=== PATIENT | male | born 1990 | race Caucasian/White ===

== ENCOUNTER 2016-05-29 17:40 | Emergency (ER) | payer OTHER ==
[~2016-05-29] VITALS: Ht 177.8 cm; Wt 77.1 kg
[~2016-05-29 17:40] MED LIST: HYDROXYZINE HCL50 M1 PO; KEFLEX500 M1 PO; NOVOLIN N100 UNIT/1 SC; NOVOLIN R100 UNIT/1 SC; PERCOCET 5-3251 EACH PO; RELION NOVOL100 U/M1 SC; VICODIN 5-3001 EACH PO
[2016-05-29 17:46] VITALS: BP 148/94
--- NOTE | 2016-05-29 18:32 | ED AMS/SEIZURE/WEAK/DIZZY ---
History of Present Illness General Chief Complaint: General Adult Stated Complaint: BIBA FOR LOW BS Source: patient, family, friend Exam Limitations: no limitations Vital Signs & Intake/Output Vital Signs & Intake/Output Vital Signs Date Time Temp Pulse Resp B/P Pulse O2 O2 Flow FiO2 Ox Delivery Rate 05/29 1746 97.5 100 20 148/94 98 Room Air ED Intake and Output 05/30 0000 05/29 1200 Intake Total Output Total Balance Patient 170 lb Weight Allergies Coded Allergies: latex (ITCHY 07/30/15) Reconcile Medications Insulin NPH Human Isophane (Novolin N) 100 UNIT/ML VIAL DM (Reported) Insulin Regular (Novolin R Inj) 1,000 UNITS/10 ML BAILEY 0 UNITS SC TID AC DIABETES (Reported) Triage Note: 25 YO MALE BIBA FROM CAR. PT WAS WITH FRIENDS WHO STATES PT HAS A SEUIZRE. ON EMS ARRIVAL PTS SUGAR WAS 30, HX OF IDDM. PT WAS GIVEN 2 ORAL TUBES OF GLUCOSE AND SUGAR WENT UP TO 71 FOR EMS. PT ARRIVES A&O X3. STATES HAS A SEUZIRE HISTORY. PTS SUGAR 69 ON ARRIVAL TO ER. PT STATES HE TOOK HIS NORMAL DOSE OF INSULIN TODAY AND ATE. Triage Nurses Notes Reviewed? yes HPI: 25 yo M PMH IDDM presenting with altered mental status. Per friend patient was seated in front seat of car parked on the side of the road, progressive altered mental status, diaphoretic, confused, lethargic, EMS called, on arrival FSG 30, given 2 tubes of oral glucose, improved to 71. On arrival to ED patient awake, alert, no complaints, refusing FSG, bloodwork, or IV, reuqesting discharge. Denies fevers, chills, headache, chest pain, SOB, AP, N/V, focal neurologic Sx. States that he took 22U of NPH insulin this morning, very active today at work, forgot to eat lunch or dinner. (RONNIE MCKEON,JOSE) Past History Travel History Traveled to [place] past 21 day No Medical History Any Pertinent Medical History? see below for history Neurological: NONE EENT: NONE Cardiovascular: NONE Respiratory: NONE Gastrointestinal: NONE Hepatic: NONE Renal: NONE Musculoskeletal: NONE Psychiatric: NONE Endocrine: diabetes Surgical History Surgical History: non-contributory Psychosocial History What is your primary language Urdu Tobacco Use: Never used Family History Hx Contributory? No (JOSE TRUJILLO MD) Review of Systems Review of Systems Constitutional: Reports: diaphoresis. EENTM: Reports: no symptoms. Respiratory: Reports: no symptoms. Cardiovascular: Reports: no symptoms. GI: Reports: no symptoms. Genitourinary: Reports: no symptoms. Musculoskeletal: Reports: no symptoms. Skin: Reports: no symptoms. Neurological/Psychological: Reports: other (Altered mental status). Hematologic/Endocrine: Reports: no symptoms. Immunologic/Allergic: Reports: no symptoms. All Other Systems: Reviewed and Negative (JOSE TRUJILLO MD) Physical Exam Physical Exam General Appearance: well developed/nourished, no apparent distress, alert, awake Head: atraumatic, normal appearance Eyes: Bilateral: normal appearance, PERRL, EOMI. Ears, Nose, Throat: normal pharynx, normal ENT inspection Neck: normal inspection, supple, full range of motion Cardiovascular: regular rate/rhythm, normal peripheral pulses Gastrointestinal: normal bowel sounds, soft, non-tender Neurologic/Psych: no motor/sensory deficits, awake, alert, oriented x 3 Comments: Neurologic: Cranial nerves II-XII intact, no pronator drift, muscle strength 5/5 thoughout, no sensory deficits, no dysmetria Core Measures ACS in differential dx? No CVA/TIA Diagnosis: No Severe Sepsis Present: No Septic Shock Present: No (JOSE TRUJILLO MD) Progress Differential Diagnosis: arrythmia, CVA/stroke, dehydration, drug intoxication, hypoglycemia, hypoxia, seizure disorder Plan of Care: Current Medications Sig/Antonio Start time Last Medication Dose Stop Time Status Admin Dextrose 25 GM ONCE ONE 05/29 1800 CAN (Dextrose 50%) 05/29 1801 Laboratory Tests 05/29/16 1757: Lactic Acid Cancelled, CBC w Diff Cancelled, WBC Cancelled, RBC Cancelled, Hgb Cancelled, Hct Cancelled, MCV Cancelled, MCH Cancelled, RDW Cancelled, Plt Count Cancelled, MPV Cancelled, PUBS MCHC Cancelled, Urine Color Cancelled, Urine Clarity Cancelled, Urine pH Cancelled, Ur Specific [place] Cancelled, Urine Protein Cancelled, Urine Ketones Cancelled, Urine Nitrite Cancelled, Urine Bilirubin Cancelled, Urine Urobilinogen Cancelled, Ur Leukocyte Esterase Cancelled, Ur Microscopic Cancelled, Urine Hemoglobin Cancelled, Urine Glucose Cancelled Physician MDM: 25 yo M presenting with altered mental status in the setting of hypoglycemia, resolved with oral glucose administration. VSS, awake, alert, oriented x3, neurologic exam non-focal. Patient refusing IV, bloodwork, or further evaluation, requesting discharge AMA. Given 2 cups orange juice, refused repeat FSG. Risks of discharge AMA including recurrent hypoglycemia, seizure, neurologic injury and discussed with patient, patient has capacity and understands the risks of forgoing further evaluation. D/Sonny AMA. (RONNIE MCKEON,JOSE) Initial ED EKG: none (RONNIE MCKEON,JOSE) Departure Departure Disposition: HOME OR SELF CARE Condition: Stable Clinical Impression Primary Impression: Hypoglycemia Referrals: CHINA MCKEON,CHEYENNE Fontenot (PCP/Family) Additional Instructions: Check your sugar frequently tonight and ensure that you eat enough food. Follow up wtih your primary care physician in the next 2-3 days. Return to the ED for any new, worsening, or concerning symptoms. Departure Forms: Customer Survey General Discharge Information (JOSE TRUJILLO MD) Resident Co-Sign Statement Statement: ED Attending supervision documentation- [X] I saw and evaluated the patient. I have also reviewed all the pertinent lab results and diagnostic results. I agree with the findings and the plan of care as documented in the Resident's documentation. [X] I have reviewed the ED Record and agree with the Resident's documentation. [] Additions or exceptions (if any) to the Resident's note and plan are summarized below: [] (FLORENCE MCKEON,FIDEL)
== END 2016-05-29 18:40 | disposition left against medical advice (07) ==
LOC: ERH 17:40
DX: E11.649 Type 2 diabetes mellitus with hypoglycemia without coma (principal); R41.82 Altered mental status, unspecified

== ENCOUNTER 2016-07-13 22:57 | Emergency (ER) | payer OTHER ==
[~2016-07-13] VITALS: Ht 177.8 cm; Wt 94.3 kg
[2016-07-13 23:13] VITALS: BP 137/84
--- NOTE | 2016-07-13 23:22 | ED THROAT/DENTAL COMPLAINT ---
History of Present Illness General Chief Complaint: Sore Throat, Dental Pain Stated Complaint: SORE THROAT Source: patient Exam Limitations: no limitations Vital Signs & Intake/Output Vital Signs & Intake/Output Vital Signs Date Time Temp Pulse Resp B/P B/P Pulse O2 O2 Flow FiO2 Mean Ox Delivery Rate 07/13 2313 98.2 80 18 137/84 98 Room Air ED Intake and Output 07/14 0000 07/13 1200 Intake Total Output Total Balance Patient 208 lb Weight Weight Reported by Patient Measurement Method Allergies Coded Allergies: latex (ITCHY 07/30/15) Reconcile Medications Ciprofloxacin HCl/Dexameth (Ciprodex Otic Suspension) 0.3 %-0.1 % DROPS.SUSP 4 GTT OT BID otitis externa Insulin NPH Human Isophane (Novolin N) 100 UNIT/ML VIAL DM (Reported) Insulin Regular (Novolin R Inj) 1,000 UNITS/10 ML BAILEY 0 UNITS SC TID AC DIABETES (Reported) Triage Note: PT TO TRIAGE WOTH C/O SORE THROAT PAIN AND CONGESTION x4DAYS. [facility] HAD RIGHT EYR FOR 2 DAYS. DENIES FEVER. VSS. STREP SWAB OBTAINED IN TRIAGE. Triage Nurses Notes Reviewed? yes HPI: Patient is a 25 year old male presents complaining of sore throat, ear popping sensation, jaw pain. Pain onset 4 days ago. Taking excedrin with mild improvement. Had brown discharge from left ear yesterday. Symptoms are currently moderate, have been severe. Associated chills. Denies dyspnea, inability to swallow. (MAGGIE DODD) Past History Travel History Traveled to [place] past 21 day No Medical History Any Pertinent Medical History? see below for history Neurological: NONE EENT: NONE Cardiovascular: NONE Respiratory: NONE Gastrointestinal: NONE Hepatic: NONE Renal: NONE Musculoskeletal: NONE Psychiatric: NONE Endocrine: diabetes Surgical History Surgical History: non-contributory Psychosocial History What is your primary language Indonesian Tobacco Use: Never used Family History Hx Contributory? No (MAGGIE DODD) Review of Systems Review of Systems Constitutional: Reports: chills. Denies: fever. EENTM: Reports: ear discharge, ear pain, nasal congestion, throat pain. Respiratory: Reports: cough. Denies: short of breath. Cardiovascular: Reports: no symptoms. GI: Reports: no symptoms. Genitourinary: Reports: no symptoms. Musculoskeletal: Reports: no symptoms. Skin: Reports: no symptoms. Neurological/Psychological: Reports: headache. Hematologic/Endocrine: Reports: no symptoms. Immunologic/Allergic: Reports: no symptoms. (MAGGIE DODD) Physical Exam Physical Exam General Appearance: well developed/nourished, alert, awake Head: atraumatic, normal appearance Eyes: Bilateral: normal appearance, PERRL, EOMI. Ears: Left: erythema (left EAC). Bilateral: Tympanic normal. Nose: normal inspection Mouth/Throat: normal mouth inspection, pharynx normal Neck: normal inspection, supple, full range of motion, mild bilateral anterior cervical lymphadenopathy Cardiovascular/Respiratory: normal breath sounds, regular rate/rhythm, no respiratory distress Back: normal inspection, normal range of motion Neurologic/Psych: no motor/sensory deficits, awake, alert, oriented x 3, normal gait, normal mood/affect Skin: intact, normal color, warm/dry Core Measures ACS in differential dx? No Severe Sepsis Present: No Septic Shock Present: No (MAGGIE DODD) Progress Differential Diagnosis: epiglottitis, meningitis, stomatitis/gingivitis, strep pharyngitis Plan of Care: Orders Procedure Date/time Status THROAT CULTURE W/QUICK STREP 07/13 2317 Active Patient afebrile, nontoxic-appearing, tolerating oral intake appropriately. Strep test negative. Pharyngitis likely viral. Appears stable for discharge. (MAGGIE DODD) Departure Departure Time of Disposition: 2358 Disposition: HOME OR SELF CARE Condition: Stable Clinical Impression Primary Impression: Otitis externa, left Qualifiers: Otitis externa type: unspecified type Chronicity: acute Qualified Code: H60.502 - Unspecified acute noninfective otitis externa, left ear Secondary Impressions: Viral pharyngitis Referrals: CH[place] MCKEON,CHEYENNE Fontenot (PCP/Family) Additional Instructions: Follow up with Dr. Wellington if no improvement within 2-3 days. Return to the ER if difficulty breathing, unable to stay hydrated, swallowing becomes more difficult or worsening of symptoms. Departure Forms: Customer Survey General Discharge Information Prescriptions: Current Visit Scripts Ciprofloxacin HCl/Dexameth (Ciprodex Otic Suspension) 4 GTT OT BID #1 BOT (MAGGIE DODD) PA/FOOD SALES CLERK Co-Sign Statement Statement: ED Attending supervision documentation- [] I saw and evaluated the patient. I have also reviewed all the pertinent lab results and diagnostic results. I agree with the findings and the plan of care as documented in the PA's/FOOD SALES CLERK's documentation. [X] I have reviewed the ED Record and agree with the PA's/FOOD SALES CLERK's documentation. [] Additions or exceptions (if any) to the PAs/FOOD SALES CLERK's note and plan are summarized below: [] (CRESCENCIO MCKEON,MANUEL Villatoro)
[2016-07-14] MEDS ORDERED: CIPRODEX OTIC7.5 ML OT
== END 2016-07-14 00:05 ==
LOC: ERH 22:57
DX: H60.92 Unspecified otitis externa, left ear (principal); J02.8 Acute pharyngitis due to other specified organisms

== ENCOUNTER 2016-08-22 17:45 | Emergency (ER) | payer OTHER ==
[~2016-08-22] VITALS: Ht 177.8 cm; Wt 86.2 kg
[~2016-08-22 17:45] MED LIST changes: +CIPRODEX OTIC7.5 ML OT
--- NOTE | 2016-08-22 18:13 | ED MVC/FALL/TRAUMA COMPLAINT ---
History of Present Illness General Chief Complaint: Fall Stated Complaint: FALL, MANY COMPLAINTS Source: patient, family Exam Limitations: poor historian Vital Signs & Intake/Output Vital Signs & Intake/Output Vital Signs Date Time Temp Pulse Resp B/P B/P Pulse O2 O2 Flow FiO2 Mean Ox Delivery Rate 08/22 1954 99.0 105 20 136/90 98 Room Air 08/22 1830 Room Air Room Air 08/22 1751 97.8 125 15 144/89 97 Room Air Room Air Allergies Coded Allergies: latex (ITCHY 08/22/16) Reconcile Medications Ciprofloxacin HCl/Dexameth (Ciprodex Otic Suspension) 0.3 %-0.1 % DROPS.SUSP 4 GTT OT BID otitis externa Insulin NPH Human Isophane (Novolin N) 100 UNIT/ML VIAL DM (Reported) Insulin Regular (Novolin R Inj) 1,000 UNITS/10 ML BAILEY 0 UNITS SC TID AC DIABETES (Reported) Oxycodone HCl/Acetaminophen (Percocet 5-325 MG Tablet) 5 MG-325 MG TABLET 1 TAB PO Q4-6 PRN PRN pain Triage Note: PT TO ED FOR MULTIPLE COMPLAINTS OF HEAD PAIN, NAUSEA S/P FALL. PT REPORTS HE SLIPPED AND FELL GETTING OUT OF THE TUB TODAY AND HIT HIS HEAD, THEN PT WENT TO GO CHANGE HIS CLOTHES MINUTES EARLIER AND PASSED OUT. PT REPORTS HE GOT DIZZY, THEN REMEMBERS FALLING AND HITTING HIS HEAD AND "THE NEXT THING I KNEW I WOKE UP." PT THINKS HE WAS UNCONCONSCIOUS FOR APPROX 30-40 MINUTES. PT ARRIVES WITH SWOLLEN LIP AND SWOLLEN TONGUE. HAS HAD HISTORY OF SEIZURES IN PAST BUT REPORTS THIS WASN'T A SEIZURE. PT TAKEN TO ROOM 10, COLLAR APPLIED FOR PRECAUTIONS. Triage Nurses Notes Reviewed? yes Onset: Abrupt (2pm today) Duration: hour(s):, constant, changing over time, continues in ED, getting worse Timing: single episode today Severity: moderate, severe Severity Numbers: 9 Injuries/Fall Location: head, face, neck, upper extremity (rt elbow), chest Method of Injury: fall Loss of Consciousness: prolonged (minutes) No Modifying Factors: none Associated Symptoms: headache, neck pain HPI: 25-year-old male history of insulin-dependent diabetes since for evaluation after a fall earlier today. Patient reports he was trying to get out of the bathtub when he slipped and fell hitting his head neck upper back and right elbow on the ground. The fall occurred approximately at 2 PM today. Patient reports he did lose consciousness during the fall woke back up and lost consciousness a second time. Patient feels he may have been out for 30 or 40 minutes. Patient is currently reporting pain located diffusely in his head and neck thoracic spine and right elbow. Pain is worse with movement and does not radiate he rated as a 9 out of 10. Patient also reports a small cut on his upper lip that was bleeding when he woke up. No troubles breathing trouble swallowing or drooling. He is not taking any medication for pain he denies any previous injuries or surgeries on his back. He does not take any blood thinners. No nausea no vomiting no changes in vision no confusion. (KARUNA WICK PA-C) Past History Travel History Traveled to [place] past 21 day No Medical History Any Pertinent Medical History? see below for history Neurological: NONE EENT: NONE Cardiovascular: NONE Respiratory: NONE Gastrointestinal: NONE Hepatic: NONE Renal: NONE Musculoskeletal: NONE Psychiatric: NONE Endocrine: diabetes Surgical History Surgical History: non-contributory Psychosocial History What is your primary language Indonesian Family History Hx Contributory? No (KARUNA WICK PA-C) Review of Systems Review of Systems Constitutional: Reports: no symptoms. Eyes: Reports: no symptoms. Ears, Nose, Throat, Mouth: Reports: see HPI, mouth swelling. Respiratory: Reports: no symptoms. Cardiovascular: Reports: no symptoms. Gastrointestinal/Abdominal: Reports: no symptoms. Genitourinary: Reports: no symptoms. Musculoskeletal: Reports: see HPI, back pain, joint pain (rt elbow), joint swelling (rt elbow), muscle pain. Skin: Reports: no symptoms. Neurological/Psychological: Reports: no symptoms. All Other Systems: Reviewed and Negative (KARUNA WICK PA-C) Physical Exam Physical Exam General Appearance: well developed/nourished, no apparent distress, alert, awake , anxious, moderate distress Head: atraumatic, normal appearance, tenderness (occiptal lobe), there is a superfical abrasion located in the chin. no SC tissue is visible. Eyes: Bilateral: normal appearance, PERRL, EOMI, normal inspection. Ears, Nose, Throat, Mouth: hearing grossly normal, dental injury, moist mucous membrane Neck: normal inspection, supple, full range of motion, normal alignment, no midline tenderness Respiratory: normal breath sounds, chest non-tender, no respiratory distress, lungs clear Cardiovascular: regular rate/rhythm Peripheral Pulses: 2+ radial (R), 2+ radial (L), 2+ tibialis posterior (R), 2+ tibialis posterior ( L) Gastrointestinal: normal bowel sounds, soft, non-tender, no organomegaly Back: normal inspection, vertebral tenderness (thoracic), decreased range of motion (thoracic spine), muscle spasm Extremities: evidence of injury (rt elbow), injury present, limited range of motion (rt elbow), tenderness (rt elbow) Neurologic/Psych: no motor/sensory deficits, awake, alert, oriented x 3, normal gait, normal mood/affect Skin: intact, normal color, warm/dry Comments: There is swelling pain with palpation and bruising around the right elbow. Decreased range of motion of the right elbow due to pain. No gross deformities neurovascular supply of the right upper extremity is intact. No signs of trauma to the head or neck the patient does report pain with midline tenderness of the neck and pain with palpation palpation of the occipital skull. There is a superficial abrasion on the left side of the upper lip with associated soft tissue swelling. Patient is tolerating secretions no swelling of tongue or throat. Core Measures ACS in differential dx? No Severe Sepsis Present: No Septic Shock Present: No (SHAMIKA OH,KARUNA) Progress Differential Diagnosis: abd injury, C/T/L spine injury, ext injury, ICH, spinal cord injury, pneuothorax, rt elbow fracture Plan of Care: Orders Procedure Date/time Status TROPONIN LEVEL 08/22 184 Complete COMPREHENSIVE METABOLIC PANEL 08/22 184 Complete CBC WITHOUT DIFFERENTIAL 08/22 1842 Complete EKG 08/22 1753 Active Laboratory Tests 08/22/16 1946: Anion Gap 13, Estimated GFR > 60, BUN/Creatinine Ratio 18.9, Glucose 339 H, Calcium 10.0, Total Bilirubin 0.6, AST 25, ALT 38, Alkaline Phosphatase 88, Troponin I < 0.01, Total Protein 7.3, Albumin 4.4, Globulin 2.9, Albumin/ Globulin Ratio 1.5, CBC w Diff MAN DIFF ORDERED, RBC 5.29, MCV 88.7, MCH 29.9, RDW 13.1, MPV 9.1, Gran % 85.6 H, Lymphocytes % 8.1 L, Monocytes % 6.1, Eosinophils % 0.1, Basophils % 0.1, Absolute Granulocytes 15.1 H, Segmented Neutrophils 84 H, Band Neutrophils 1, Absolute Lymphocytes 1.4, Lymphocytes 8 L, Monocytes 7, Absolute Monocytes 1.1 H, Absolute Eosinophils 0, Absolute Basophils 0, Platelet Estimate ADEQUATE, Normochromic RBCs VERIFIED, PUBS MCHC 33.7 Patient was given 2 mg of morphine subcutaneous for pain. CT of the head and neck and chest was ordered. X-rays of the right elbow was ordered. CBC CMP and troponin was drawn EKG reviewed shows sinus tach. 8:42 PM CAT scans of the head neck chest are within normal limits. X-ray of the right elbow shows no fracture. Patient is feeling better after 2 mg subcutaneous morphine. Blood work shows elevated blood sugar to 339 and is otherwise within normal limits. Advised patient that he needs to be given insulin to bring his blood sugar down. Patient is refusing any insulin in the emergency department and wants to wait until he gets home to use his own insulin. Patient is aware of the risks of elevated blood sugar. PT also has a white blood cell count of 17. He is currently afebrile and not showing any signs of infection. Previous records were reviewed and patient has had elevated white blood cell counts in the past without infection. This may have been caused by trauma. Patient was advised of this white blood cell count and instructed to follow-up with his primary care doctor. PT will be discharged home with Percocet as needed for pain and will follow up with primary care doctor this week. Case discussed with Dr. Solorio who is in agreement with the plan. (SHAMIKA OH,KARUNA) Diagnostic Imaging: Viewed by Me: Radiology Read, CT Scan. Initial ED EKG: normal axis, normal intervals, normal p-waves, normal QRS complex, sinus tach Comments: EXAM TYPE: RAD - XRY-ELBOW, AP & LATERAL, RIGHT EXAMINATION: XR ELBOW, RIGHT CLINICAL INFORMATION: Right elbow pain following fall. COMPARISON: None. TECHNIQUE: AP and lateral views of the right elbow. FINDINGS: The bones and soft tissues are normal. No acute elbow fracture or joint effusion. Alignment is anatomic. Joint spaces are maintained. IMPRESSION: No acute fracture or dislocation of the right elbow. DICTATED BY: SYLVESTER MOREJON MD DATE/TIME DICTATED:08/22/161940 [employer] OPERATOR:RAD.CARDOZO DATE/TIME TRANSCRIBED:08/22/161940 SERVICE DATE: 08/22/16 EXAM TYPE: CAT - CT CHEST WO IV CONTRAST EXAMINATION: CT CHEST WITHOUT CONTRAST CLINICAL INFORMATION: Thoracic spine pain following fall. COMPARISON: None. TECHNIQUE: Multidetector volumetric CT imaging of the chest was done. Axial MIP volume rendering provided. Sagittal and coronal reformatted images were obtained. DLP: 727 mGy-cm FINDINGS: DOG RACES MANAGER: Newspaper Deliverer view of the chest demonstrates symmetric pulmonary expansion. LUNGS: The lungs are clear with no evidence of inflammation or nodules. MEDIASTINUM: The heart is normal in size, without significant pericardial effusion. There is normal three-vessel branching of the aortic arch. No significant pericardial effusion is identified. The thoracic aorta and main pulmonary artery are normal in caliber. There is no significant mediastinal or hilar adenopathy. PLEURA: There is no pleural effusion. No pleural mass or thickening. AXILLA: No lymphadenopathy. UPPER ABDOMEN: No acute findings within the upper abdomen. Incidental note is made of nephrolithiasis of the bilateral kidneys with subcentimeter stones identified within the upper, mid and lower poles of the right kidney as well as within the upper and midpole of the left kidney. No appreciable hydronephrosis of either kidney. OSSEOUS STRUCTURES: No acute osseous abnormality. Normal alignment of the thoracic spine. Vertebral body heights and intervertebral disc spaces are grossly preserved. IMPRESSION: 1. No acute osseous abnormality of the thoracic spine. Vertebral body heights and intervertebral disc spaces are preserved. 2. No acute abnormality within the chest. 3. Nephrolithiasis of the bilateral kidneys, as described above. SERVICE DATE: 08/22/16 EXAM TYPE: CAT - CT HEAD WO IV CONTRAST EXAMINATION: CT HEAD WITHOUT CONTRAST CLINICAL INFORMATION: Trauma COMPARISON: 09/17/[address] scan TECHNIQUE: Contiguous axial imaging was performed from the skull base to vertex without intravenous administration of contrast. In addition, helical noncontrast CT imaging was acquired through the cervical spine and source images were reviewed along with axial reconstructions and sagittal and coronal MPRs. DLP: 940.30 mGy-cm. FINDINGS: CT HEAD: There is no evidence of acute intracranial hemorrhage or territorial infarction. No abnormal mass effect or midline shift is seen. Herrera to white matter differentiation is well preserved. No extra-axial fluid collections are identified. The ventricles are normal in size. There is no abnormal attenuation within the brain parenchyma. No acute skull fracture. The mastoid air cells are well aerated. There is near complete opacification of the right sphenoid sinus. Mild mucosal thickening of the frontal sinuses and anterior ethmoid air cells also seen. No air-fluid level. CT CERVICAL SPINE: The vertebral body height and alignment of cervical spine are within normal limits. The intervertebral disc spaces are preserved. The posterior elements are intact. There is no acute fracture or dislocation of the cervical spine. The paraspinal soft tissue is unremarkable. The cervicothoracic and cervical cranial junctions are within normal limits. Marginal anterior osteophytes at C5-C6 and C7 levels, can be degenerative in nature. IMPRESSION: No acute intracranial hemorrhage. Sphenoid sinusitis. No acute fracture or dislocation of the cervical spine. DICTATED BY: TYLER YEUNG MD DATE/TIME DICTATED:08/22/161915 [employer] OPERATOR:CARDOZO DATE/TIME TRANSCRIBED:08/22/161915 SERVICE DATE: 08/22/16 EXAM TYPE: CAT - CT CERV SPINE WO IV CONTRAST EXAMINATION: CT CERVICAL SPINE WITHOUT CONTRAST CLINICAL INFORMATION: Head trauma. COMPARISON: None. TECHNIQUE: Multiple axial CT images of the cervical spine were obtained without intravenous contrast. 2-D coronal and sagittal reformatted images were obtained at the acquisition workstation. DLP: 940 mGy-cm- combined head CT and cervical spine. FINDINGS: No acute fracture or subluxation of the cervical spine is identified. There are mild degenerative changes of the cervical spine, notably at C5-C6 and C6-C7. Cervical spine alignment is grossly maintained. The craniocervical junction as well as the atlantoaxial articulation are intact. Prevertebral soft tissues are within normal limits. The included bilateral lung apices are clear. IMPRESSION: No acute fracture or subluxation of the cervical spine. DICTATED BY: DARLEEN MCKEON,SYLVESTER DATE/TIME DICTATED:08/22/161922 [employer] OPERATOR:RAD.CARDOZO DATE/TIME TRANSCRIBED:08/22/161922 (KARUNA WICK PA-C) Departure Departure Disposition: HOME OR SELF CARE Condition: Stable Clinical Impression Primary Impression: Fall Secondary Impressions: Acute low back pain due to trauma, Head injury due to trauma, Pain in right elbow Referrals: CHEYENNE ATKINSON MD (PCP/Family) Additional Instructions: Rest avoid heavy lifting bending physical activity. Apply ice to the elbow. Use Percocet every 4-6 hours as needed for pain. This can cause drowsiness. Use her sliding scale insulin as soon as you get home to lower your blood sugar. Continue to take her blood sugar regularly as directed by her primary care doctor. Make a follow-up with her primary care doctor this week. Return to emergency Department with any concerns. Please go over all results of today's visit with your primary care doctor. Contact your primary care doctor to let them know you were here in the emergency room. There may be nonspecific findings which may not be related to your visit today here in the emergency room but may require further evaluation and chronic monitoring by your primary care doctor. If you had a laceration today the chance of foreign body always remains. You should follow-up with your primary care doctor for recheck in 3-5 days for a wound check. If you had an x-ray done there is a chance that a fracture could have been missed on initial read and you should follow-up with your primary care doctor for repeat x-rays if symptoms persist. If your blood pressure was elevated here in the emergency room please have rechecked by her primary care doctor within the next 48 hours by your primary care doctor. If you were prescribed a narcotic here in the emergency room or any type of controlled substances you're not allowed to drive while taking this medication or operate any type of heavy machinery. Narcotics can make you feel lightheaded dizziness nausea and can cause constipation. You may need to leaf size picker a stool softener. Thank you for choosing [facility] emergency room. Please return to the emergency room immediately if you have any other concerns worsening of symptoms. Departure Forms: Customer Survey General Discharge Information Prescriptions: Current Visit Scripts Oxycodone HCl/Acetaminophen (Percocet 5-325 MG Tablet) 1 TAB PO Q4-6 PRN PRN pain #10 TAB (KARUNA WICK PA-C) PA/SERVICE SUPERVISOR Co-Sign Statement Statement: ED Attending supervision documentation- [] I saw and evaluated the patient. I have also reviewed all the pertinent lab results and diagnostic results. I agree with the findings and the plan of care as documented in the PA's/SERVICE SUPERVISOR's documentation. x[] I have reviewed the ED Record and agree with the PA's/SERVICE SUPERVISOR's documentation. [] Additions or exceptions (if any) to the PAs/SERVICE SUPERVISOR's note and plan are summarized below: [] (MARYURI MCKEON,KAVON Mcmahan)
--- NOTE | 2016-08-22 19:29 | CT SCAN REPORT ---
EXAMINATION: CT HEAD WITHOUT CONTRAST CLINICAL INFORMATION: Trauma COMPARISON: 09/17/[address] scan TECHNIQUE: Contiguous axial imaging was performed from the skull base to vertex without intravenous administration of contrast. In addition, helical noncontrast CT imaging was acquired through the cervical spine and source images were reviewed along with axial reconstructions and sagittal and coronal MPRs. DLP: 940.30 mGy-cm. FINDINGS: CT HEAD: There is no evidence of acute intracranial hemorrhage or territorial infarction. No abnormal mass effect or midline shift is seen. Herrera to white matter differentiation is well preserved. No extra-axial fluid collections are identified. The ventricles are normal in size. There is no abnormal attenuation within the brain parenchyma. No acute skull fracture. The mastoid air cells are well aerated. There is near complete opacification of the right sphenoid sinus. Mild mucosal thickening of the frontal sinuses and anterior ethmoid air cells also seen. No air-fluid level. CT CERVICAL SPINE: The vertebral body height and alignment of cervical spine are within normal limits. The intervertebral disc spaces are preserved. The posterior elements are intact. There is no acute fracture or dislocation of the cervical spine. The paraspinal soft tissue is unremarkable. The cervicothoracic and cervical cranial junctions are within normal limits. Marginal anterior osteophytes at C5-C6 and C7 levels, can be degenerative in nature. IMPRESSION: No acute intracranial hemorrhage. Sphenoid sinusitis. No acute fracture or dislocation of the cervical spine.
--- NOTE | 2016-08-22 19:29 | CT SCAN REPORT ---
EXAMINATION: CT CERVICAL SPINE WITHOUT CONTRAST CLINICAL INFORMATION: Head trauma. COMPARISON: None. TECHNIQUE: Multiple axial CT images of the cervical spine were obtained without intravenous contrast. 2-D coronal and sagittal reformatted images were obtained at the acquisition workstation. DLP: 940 mGy-cm- combined head CT and cervical spine. FINDINGS: No acute fracture or subluxation of the cervical spine is identified. There are mild degenerative changes of the cervical spine, notably at C5-C6 and C6-C7. Cervical spine alignment is grossly maintained. The craniocervical junction as well as the atlantoaxial articulation are intact. Prevertebral soft tissues are within normal limits. The included bilateral lung apices are clear. IMPRESSION: No acute fracture or subluxation of the cervical spine.
--- NOTE | 2016-08-22 19:34 | CT SCAN REPORT ---
EXAMINATION: CT CHEST WITHOUT CONTRAST CLINICAL INFORMATION: Thoracic spine pain following fall. COMPARISON: None. TECHNIQUE: Multidetector volumetric CT imaging of the chest was done. Axial MIP volume rendering provided. Sagittal and coronal reformatted images were obtained. DLP: 727 mGy-cm FINDINGS: ADMINISTRATION MANAGER: Sr. Merchandise Planner view of the chest demonstrates symmetric pulmonary expansion. LUNGS: The lungs are clear with no evidence of inflammation or nodules. MEDIASTINUM: The heart is normal in size, without significant pericardial effusion. There is normal three-vessel branching of the aortic arch. No significant pericardial effusion is identified. The thoracic aorta and main pulmonary artery are normal in caliber. There is no significant mediastinal or hilar adenopathy. PLEURA: There is no pleural effusion. No pleural mass or thickening. AXILLA: No lymphadenopathy. UPPER ABDOMEN: No acute findings within the upper abdomen. Incidental note is made of nephrolithiasis of the bilateral kidneys with subcentimeter stones identified within the upper, mid and lower poles of the right kidney as well as within the upper and midpole of the left kidney. No appreciable hydronephrosis of either kidney. OSSEOUS STRUCTURES: No acute osseous abnormality. Normal alignment of the thoracic spine. Vertebral body heights and intervertebral disc spaces are grossly preserved. IMPRESSION: 1. No acute osseous abnormality of the thoracic spine. Vertebral body heights and intervertebral disc spaces are preserved. 2. No acute abnormality within the chest. 3. Nephrolithiasis of the bilateral kidneys, as described above.
--- NOTE | 2016-08-22 19:45 | RADIOLOGY REPORT ---
EXAMINATION: XR ELBOW, RIGHT CLINICAL INFORMATION: Right elbow pain following fall. COMPARISON: None. TECHNIQUE: AP and lateral views of the right elbow. FINDINGS: The bones and soft tissues are normal. No acute elbow fracture or joint effusion. Alignment is anatomic. Joint spaces are maintained. IMPRESSION: No acute fracture or dislocation of the right elbow.
[2016-08-22 19:55] VITALS: BP 136/90
[2016-08-22 20:00] LABS: ABSOLUTE BASOPHIL COUNT 0 /CUMM (0.0-0.2); ABSOLUTE EOSINOPHIL COUNT 0 /CUMM (0.0-0.7); ABSOLUTE GRANULOCYTE CT 15.1 /CUMM (1.4-6.5); ABSOLUTE LYMPH COUNT 1.4 /CUMM (1.2-3.4); ABSOLUTE MONOCYTE COUNT 1.1 /CUMM (0.10-0.60); BASOPHIL % 0.1 % (0.0-2.0); EOSINOPHIL % 0.1 % (0-5); GRANULOCYTE % 85.6 % (42.2-75.2); HEMATOCRIT 46.9 % (42-52); MEAN CORPUSCULAR HGB 29.9 PG (27.0-31.0); MEAN CORPUSCULAR HGB CONC 33.7 G/DL (33.0-37.0); MEAN CORPUSCULAR VOLUME 88.7 FL (80.0-94.0); MEAN PLATELET VOLUME 9.1 FL (7.4-10.4); PLATELET COUNT 221 /CUMM (130-400); RBC DISTRIBUTION WIDTH 13.1 % (11.5-14.5); RED BLOOD CELL CT 5.29 /CUMM (4.70-6.10); WHITE BLOOD CELL COUNT 17.6 /CUMM (4.8-10.8)
[2016-08-22] MEDS ORDERED: PERCOCET 5-3251 EACH PO (21:11)
== END 2016-08-22 21:21 ==
LOC: ERH 17:45
PROVIDERS: Physician Assistant Medical
DX: S09.90XA Unspecified injury of head, initial encounter (principal); M54.5 Low back pain; M25.521 Pain in right elbow; W18.2XXA Fall in (into) shower or empty bathtub, initial encounter; Y92.9 Unspecified place or not applicable; Y93.9 Activity, unspecified
CPT/HCPCS: 73070-RT; 93005; 93010; 96372

== ENCOUNTER 2016-08-26 17:05 | Emergency (ER) | payer OTHER ==
[2016-08-26 17:28] VITALS: BP 128/89
== END 2016-08-26 18:15 | disposition admitted as inpatient to this hospital (09) ==
LOC: ERH 17:05
DX: M25.472 Effusion, left ankle (principal); H92.01 Otalgia, right ear
CPT/HCPCS: 99281

== ENCOUNTER 2016-09-03 18:52 | Emergency (ER) | payer OTHER ==
[~2016-09-03] VITALS: Ht 177.8 cm; Wt 95.3 kg
[2016-09-03 19:04] VITALS: BP 142/86
--- NOTE | 2016-09-03 19:42 | ED HAND/WRIST INJURY COMPLAINT ---
History of Present Illness General Chief Complaint: Laceration Procedure Stated Complaint: HAND LAC Source: patient Exam Limitations: no limitations Vital Signs & Intake/Output Vital Signs & Intake/Output Vital Signs Date Time Temp Pulse Resp B/P B/P Pulse O2 O2 Flow FiO2 Mean Ox Delivery Rate 09/03 2001 Room Air 09/03 1904 98.3 91 15 142/86 100 Room Air Allergies Coded Allergies: latex (ITCHY 08/22/16) Triage Note: PT TO ED FOR LAC TO L HAND, STATING HE CUT IT WHILE OPENING A PIGGY BANK. PT PLACED A DRESSING WITH DUCT TAPE AT HOME AND BLEEDING CONTROLLED IN TRIAGE. Triage Nurses Notes Reviewed? yes Occurred: just prior to arrival Duration: constant, continues in ED Timing: recent history Injury Environment: home Pain/Injury Location: Left: Hand. No Modifying Factors: none HPI: 25-year-old male comes into emergency room with complaints of cut to his left hand. 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 Tetanus shot up-to-date. Some associated bleeding. Sharp throbbing pain. Moderate to severe. Continuous. (MARIANNA GENTILE) Reconcile Medications Ciprofloxacin HCl/Dexameth (Ciprodex Otic Suspension) 0.3 %-0.1 % DROPS.SUSP 4 GTT OT BID otitis externa Insulin NPH Human Isophane (Novolin N) 100 UNIT/ML VIAL DM (Reported) Insulin Regular (Novolin R Inj) 1,000 UNITS/10 ML BAILEY 0 UNITS SC TID AC DIABETES (Reported) Meloxicam (Mobic) 15 MG TABLET 1 TAB PO DAILY pain Oxycodone HCl/Acetaminophen (Percocet 5-325 MG Tablet) 5 MG-325 MG TABLET 1 TAB PO Q4-6 PRN PRN pain (MARYURI MCKEON,KAVON Mcmahan) Past History Travel History Traveled to [place] past 21 day No Medical History Any Pertinent Medical History? 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 No (MARIANNA GENTILE) Review of Systems Review of Systems Constitutional: Reports: no symptoms. EENTM: Reports: no symptoms. Respiratory: Reports: no symptoms. Cardiovascular: Reports: no symptoms. GI: Reports: no symptoms. Genitourinary: Reports: no symptoms. Musculoskeletal: Reports: see HPI. Skin: Reports: see HPI. Neurological/Psychological: Reports: no symptoms. Hematologic/Endocrine: Reports: no symptoms. Immunologic/Allergic: Reports: no symptoms. All Other Systems: Reviewed and Negative (MARIANNA GENTILE) Physical Exam Physical Exam General Appearance: well developed/nourished, mild distress Head: atraumatic Eyes: Bilateral: normal appearance. Ears, Nose, Throat: normal ENT inspection, hearing grossly normal Neck: normal inspection Cardiovascular/Respiratory: no respiratory distress Back: normal inspection Hand Left: small puncture to left hand, no bleeding, bareley noticeable on exam, no sweling, pain with touch Hand Right: normal inspection Neurologic/Tendon: normal sensation, normal motor functions, normal tendon functions, responds to pain, no evidence tendon injury, no pulse deficit Skin: intact, normal color, warm/dry Lymphatic: no anterior cervical jose alberto (MARIANNA GENTILE) Progress Differential Diagnosis: abscess, cellulitis, contusion, compartment syndrome, dislocation, tenosynovitis Plan of Care: Wound irrigated with saline. Clinically looks well. Nontoxic-appearing. In no apparent distress. No active bleeding. Tetanus is up-to-date. Nothing to suture. (MARIANNA GENTILE) Departure Departure Disposition: HOME OR SELF CARE Condition: Stable Clinical Impression Primary Impression: Puncture wound of left hand Referrals: CHINA MCKEON,CHEYENNE Fontenot (PCP/Family) Additional Instructions: Have wound check in 3-5 days. Return if any redness or discharge fever chills. Return if any other concerns worsening symptoms. Take ibuprofen as needed at home. Please go over all results of today's visit with your primary care doctor. Contact your primary care doctor to let them know you were here in the emergency room. There may be nonspecific findings which may not be related to your visit today here in the emergency room but may require further evaluation and chronic monitoring by your primary care doctor. If you had a laceration today the chance of foreign body always remains. You should follow-up with your primary care doctor for recheck in 3-5 days for a wound check. If you had an x-ray done there is a chance that a fracture could have been missed on initial read and you should follow-up with your primary care doctor for repeat x-rays if symptoms persist. If your blood pressure was elevated here in the emergency room please have rechecked by her primary care doctor within the next 48 hours by your primary care doctor. If you were prescribed a narcotic here in the emergency room or any type of controlled substances you're not allowed to drive while taking this medication or operate any type of heavy machinery. Narcotics can make you feel lightheaded dizziness nausea and can cause constipation. You may need to pickle pumper a stool softener. Thank you for choosing [facility] emergency room. Please return to the emergency room immediately if you have any other concerns worsening of symptoms. Departure Forms: Customer Survey General Discharge Information (MICHELE GALINDO,MARIANNA) Departure Prescriptions: Current Visit Scripts Meloxicam (Mobic) 1 TAB PO DAILY #20 TAB PA/BELLOWS TESTER Co-Sign Statement Statement: ED Attending supervision documentation- [] I saw and evaluated the patient. I have also reviewed all the pertinent lab results and diagnostic results. I agree with the findings and the plan of care as documented in the PA's/BELLOWS TESTER's documentation. [x] I have reviewed the ED Record and agree with the PA's/BELLOWS TESTER's documentation. [] Additions or exceptions (if any) to the PAs/BELLOWS TESTER's note and plan are summarized below: [] (MARYURI MCKEON,KAVON Mcmahan)
[2016-09-03] MEDS ORDERED: MOBIC15 M1 PO (20:08)
== END 2016-09-03 20:03 ==
LOC: ERH 18:52
DX: S61.432A Puncture wound without foreign body of left hand, initial encounter (principal); W45.8XXA Other foreign body or object entering through skin, initial encounter; Y93.9 Activity, unspecified; Y92.009 Unspecified place in unspecified non-institutional (private) residence as the place of occurrence of the external cause

== ENCOUNTER 2016-10-04 12:30 | Emergency (ER) | payer OTHER ==
[~2016-10-04] VITALS: Ht 172.7 cm; Wt 90.7 kg
[~2016-10-04 12:30] MED LIST changes: +MOBIC15 M1 PO
[2016-10-04 12:34] VITALS: BP 142/80
--- NOTE | 2016-10-04 12:46 | ED GENERAL ADULT ---
History of Present Illness General Chief Complaint: General Adult Stated Complaint: HYPOGLYCEMIC Source: patient Exam Limitations: no limitations Vital Signs & Intake/Output Vital Signs & Intake/Output Vital Signs Date Time Temp Pulse Resp B/P B/P Pulse O2 O2 Flow FiO2 Mean Ox Delivery Rate 10/04 1234 98.6 76 18 142/80 98 Room Air Allergies Coded Allergies: latex (ITCHY 08/22/16) Reconcile Medications Ciprofloxacin HCl/Dexameth (Ciprodex Otic Suspension) 0.3 %-0.1 % DROPS.SUSP 4 GTT OT BID otitis externa Insulin NPH Human Isophane (Novolin N) 100 UNIT/ML VIAL DM (Reported) Insulin Regular (Novolin R Inj) 1,000 UNITS/10 ML BAILEY 0 UNITS SC TID AC DIABETES (Reported) Meloxicam (Mobic) 15 MG TABLET 1 TAB PO DAILY pain Oxycodone HCl/Acetaminophen (Percocet 5-325 MG Tablet) 5 MG-325 MG TABLET 1 TAB PO Q4-6 PRN PRN pain Triage Note: 25 YO MALE BIBDennis FROM WORK. PT HX OF DIABETES, PER PT HE WAS OUT ON A JOB AND DIDNT EAT LUNCH AT HIS NORMAL TIME. ON EMS ARRIVAL PTS BLOOD GLOCOSE WAS 20. PT GIVEN 1.5 TUBES OF ORAL GLUCOSE IN ROUTE TO ER. ON ARRIVAL. PT A&O X4. BLOOD GLUCOSE 105. PT STATING HE WOULD JUST LIKE TO LEAVE. PT NOT ALLOWING STAFF TO PLACE ID BAND ON WRIST AT [facility] [place]. PA AT BEDSIDE FOR EVAL Triage Nurses Notes Reviewed? yes Onset: Abrupt Duration: minute(s): Timing: single episode today Injury Environment: work Severity: moderate HPI: 25-year-old male with history of type 1 diabetes BIBA to emergency department following hypoglycemic event around [id number] today. Patient states that he keeps track of his meals and insulin injections daily usually without problems however today he had a schedule change which prevented him from eating his lunch although he has already injected his insulin. He states he went over to the wall and slowly collapsed onto the ground. When EMS arrived at the scene the patient's blood sugar was 20, they gave him oral glucose and his blood sugar gulshan to 60 prior to him entering the ambulance. The patient currently feels in his normal state of health, he was able to eat a sandwich and strawberries while in the emergency department. The patient denies dizziness, lightheadedness, nausea, vomiting, abdominal pain, chest pain, dyspnea, diaphoresis, confusion, agitation. (RACHEL NAVARRO PA-C) Past History Travel History Traveled to [place] past 21 day No Medical History Any Pertinent Medical History? 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 No (RACHEL NAVARRO PA-C) Review of Systems Review of Systems Constitutional: Reports: see HPI. EENTM: Reports: no symptoms. Respiratory: Reports: no symptoms. Cardiovascular: Reports: no symptoms. GI: Reports: no symptoms. Genitourinary: Reports: no symptoms. Musculoskeletal: Reports: no symptoms. Skin: Reports: no symptoms. Neurological/Psychological: Reports: see HPI. Hematologic/Endocrine: Reports: see HPI. Immunologic/Allergic: Reports: no symptoms. All Other Systems: Reviewed and Negative (RACHEL NAVARRO PA-C) Physical Exam Physical Exam General Appearance: well developed/nourished, no apparent distress, alert, awake Head: atraumatic, normal appearance Eyes: Bilateral: normal appearance, PERRL, EOMI. Ears, Nose, Throat: hearing grossly normal Neck: normal inspection, supple, full range of motion, no midline tenderness Respiratory: normal breath sounds, no respiratory distress, lungs clear Cardiovascular: regular rate/rhythm Gastrointestinal: normal bowel sounds, soft, non-tender Back: normal inspection, normal range of motion Extremities: normal inspection, normal range of motion Neurologic/Psych: awake, alert, oriented x 3, line and frame poler II-XII nml as tested Skin: intact, normal color, warm/dry Core Measures ACS in differential dx? No CVA/TIA Diagnosis: No Severe Sepsis Present: No Septic Shock Present: No (RACHEL NAVARRO PA-C) Progress Differential Diagnoses I considered the following diagnoses in my evaluation of the patient: [ hypoglycemia, TIA/CVA, electrolyte abnormality, dehydration, orthostatic hypotension] Plan of Care: The patient is tolerating by mouth here in the emergency department, his blood sugar is within normal limits's for the duration of his stay in the emergency department. The patient is requesting to go home, he is in no acute distress, his physical exam is within normal limits, he is neurologically intact. Discussed with Dr. Newberry. The patient was informed that we would prefer to observe him for a period of about one hour to make sure no changes in his status and do a repeat fingerstick. The patient still wishes to leave, he reports he will follow-up immediately with any changes. He Will follow-up with his primary care doctor as needed. Initial ED EKG: none (MELANIE OH,RACHEL GAYTAN) Departure Departure Disposition: HOME OR SELF CARE Condition: Stable Clinical Impression Primary Impression: Hypoglycemia Secondary Impressions: Type 1 diabetes Referrals: CH[place] MCKEON,CHEYENNE Fontenot (PCP/Family) Additional Instructions: Monitor your blood sugars, maintain regular diet today. Call your primary care doctor to inform them that you were seen and evaluated today. You may return to work as scheduled on Tuesday. Return with any worsening symptoms or concerns. Departure Forms: Customer Survey General Discharge Information (RACHEL NAVARRO PA-C) PA/STAFF ENGINEER Co-Sign Statement Statement: ED Attending supervision documentation- [] I saw and evaluated the patient. I have also reviewed all the pertinent lab results and diagnostic results. I agree with the findings and the plan of care as documented in the PA's/STAFF ENGINEER's documentation. [X] I have reviewed the ED Record and agree with the PA's/STAFF ENGINEER's documentation. [] Additions or exceptions (if any) to the PAs/STAFF ENGINEER's note and plan are summarized below: [] (DARBY MCKEON,RENÉE Estrada) Critical Care Note Critical Care Note Critical Care Time: non-applicable (RACHEL NAVARRO PA-C)
== END 2016-10-04 12:55 ==
LOC: ERH 12:30
DX: E10.649 Type 1 diabetes mellitus with hypoglycemia without coma (principal)

== ENCOUNTER 2017-04-13 22:01 | Emergency (ER) | payer OTHER ==
[~2017-04-13] VITALS: Ht 165.1 cm; Wt 86.2 kg
[~2017-04-13 22:01] MED LIST changes: +AMOXICILLIN875 M1 PO; +BACTRIM DS TAB1 EACH PO
[2017-04-13 22:10] VITALS: BP 122/80
[2017-04-13] MEDS ORDERED: BACTRIM DS TAB1 EACH PO (22:53)
--- NOTE | 2017-04-13 22:53 | ED ANIMAL BITE/WOUND CHECK ---
History of Present Illness General Chief Complaint: Skin Rash/ Abcess Stated Complaint: "TO GET MY ABCESS CHECK" Source: patient, old records Exam Limitations: no limitations Vital Signs & Intake/Output Vital Signs & Intake/Output Vital Signs Date Time Temp Pulse Resp B/P B/P Pulse O2 O2 Flow FiO2 Mean Ox Delivery Rate 04/13 2257 Room Air 04/13 2210 97.4 77 16 122/80 97 Room Air Allergies Coded Allergies: latex (ITCHY 08/22/16) Reconcile Medications Amoxicillin 875 MG TABLET 1 TAB PO BID CELLULITIS AND ABSCESS Insulin NPH Human Isophane (Novolin N) 100 UNIT/ML VIAL DM (Reported) Insulin Regular (Novolin R Inj) 1,000 UNITS/10 ML BAILEY 0 UNITS SC TID AC DIABETES (Reported) Oxycodone HCl/Acetaminophen (Percocet 5-325 MG Tablet) 5 MG-325 MG TABLET 1-2 TAB PO BID PAIN Oxycodone HCl/Acetaminophen (Percocet 5-325 MG Tablet) 5 MG-325 MG TABLET 1-2 TAB PO BID pain Sulfamethoxazole/Trimethoprim (Bactrim Ds Tablet) 800 MG-160 MG TABLET 1 TAB PO BID CELLULITIS Sulfamethoxazole/Trimethoprim (Bactrim Ds Tablet) 800 MG-160 MG TABLET 1 TAB PO BID abscess Triage Note: RECEIVED 26 YO MALE HERE FOR RE-EVALUATION OF ABSCESS ON BACK OF NECK. PT HERE TO SEE MARIANNA GALINDO. PT SEEN HERE LAST TUESDAY AND TUESDAY Triage Nurses Notes Reviewed? yes Onset: Abrupt Duration: day(s):, constant Timing: recent history No Modifying Factors: none HPI: 26-year-old male comes into the emergency room for further evaluation of wound check and abscess recheck. patient was seen here for an incision and drainage yesterday. Patient reports significant improvement of pain. Patient is currently on Bactrim. Culture grew out MRSA. (Nakul GALINDO,Marianna) Past History Travel History Traveled to [place] past 21 day No Medical History Any Pertinent Medical History? 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 No (Marianna Daly) Review of Systems Review of Systems Constitutional: Reports: no symptoms. EENTM: Reports: no symptoms. Respiratory: Reports: no symptoms. Cardiovascular: Reports: no symptoms. GI: Reports: no symptoms. Genitourinary: Reports: no symptoms. Musculoskeletal: Reports: no symptoms. Skin: Reports: see HPI. Neurological/Psychological: Reports: no symptoms. Hematologic/Endocrine: Reports: no symptoms. Immunologic/Allergic: Reports: no symptoms. All Other Systems: Reviewed and Negative (Marianna Daly) Physical Exam Physical Exam General Appearance: well developed/nourished, mild distress Head: atraumatic Eyes: Bilateral: normal appearance. Ears, Nose, Throat: normal ENT inspection, hearing grossly normal Neck: normal inspection Respiratory: no respiratory distress Back: normal inspection Extremities: normal range of motion Neurologic/Psych: awake, alert, oriented x 3, normal mood/affect Skin: intact, normal color, warm/dry, no erythema, some mild induration, swelling significantly improved, (Marianna Daly) Progress Differential Diagnosis: abscess, cellulitis, joint infection, tenosysnovitis Plan of Care: 04/13/2017 11:13:45 PM Patient was put on another 3 day course of Bactrim. No induration. No erythema. Significantly improved. Patient can follow up with PCP as needed. (Marianna Daly) Departure Departure Disposition: HOME OR SELF CARE Condition: Stable Clinical Impression Primary Impression: Encounter for abscess packing removal Referrals: Eliz MCKEON,Vanesa Fontenot (PCP/Family) Additional Instructions: Continue to take Bactrim as prescribed. Hot compresses and hot shower over the area. Return if any other concerns. Please go over all results of today's visit with your primary care doctor. Contact your primary care doctor to let them know you were here in the emergency room. There may be nonspecific findings which may not be related to your visit today here in the emergency room but may require further evaluation and chronic monitoring by your primary care doctor. If you had a laceration today the chance of foreign body always remains. You should follow-up with your primary care doctor for recheck in 3-5 days for a wound check. If you had an x-ray done there is a chance that a fracture could have been missed on initial read and you should follow-up with your primary care doctor for repeat x-rays if symptoms persist. If your blood pressure was elevated here in the emergency room please have rechecked by orestesour primary care doctor within the next 48. If you were prescribed a narcotic here in the emergency room or any type of controlled substances you're not allowed to drive while taking this medication or operate any type of heavy machinery. Narcotics can make you feel lightheaded dizziness nausea and can cause constipation. You may need to slat pickler a stool softener. Thank you for choosing [facility] emergency room. Please return to the emergency room immediately if you have any other concerns worsening of symptoms. Departure Forms: Customer Survey General Discharge Information Prescriptions: Current Visit Scripts Sulfamethoxazole/Trimethoprim (Bactrim Ds Tablet) 1 TAB PO BID #6 TAB (Marianna Daly) PA/GYMNASTICS COACH OR INSTRUCTOR Co-Sign Statement Statement: ED Attending supervision documentation- [] I saw and evaluated the patient. I have also reviewed all the pertinent lab results and diagnostic results. I agree with the findings and the plan of care as documented in the PA's/GYMNASTICS COACH OR INSTRUCTOR's documentation. [X] I have reviewed the ED Record and agree with the PA's/GYMNASTICS COACH OR INSTRUCTOR's documentation. [] Additions or exceptions (if any) to the PAs/GYMNASTICS COACH OR INSTRUCTOR's note and plan are summarized below: [] (Kaiden MCKEON,Aron Villatoro)
== END 2017-04-13 22:58 ==
LOC: ERH 22:01
DX: Z48.01 Encounter for change or removal of surgical wound dressing (principal)

== ENCOUNTER 2017-09-19 18:50 | Emergency (ER) | payer OTHER ==
[~2017-09-19] VITALS: Ht 177.8 cm; Wt 96.2 kg
[2017-09-19 19:37] LABS: ABSOLUTE BASOPHIL COUNT 0 /CUMM (0.0-0.2); ABSOLUTE EOSINOPHIL COUNT 0.4 /CUMM (0.0-0.7); ABSOLUTE GRANULOCYTE CT 7.5 /CUMM (1.4-6.5); ABSOLUTE LYMPH COUNT 2.8 /CUMM (1.2-3.4); ABSOLUTE MONOCYTE COUNT 0.8 /CUMM (0.10-0.60); BASOPHIL % 0.4 % (0.0-2.0); EOSINOPHIL % 3.7 % (0-5); GRANULOCYTE % 64.6 % (42.2-75.2); HEMATOCRIT 45.5 % (42-52); MEAN CORPUSCULAR HGB 30.2 PG (27.0-31.0); MEAN CORPUSCULAR HGB CONC 33.9 G/DL (33.0-37.0); MEAN CORPUSCULAR VOLUME 89.2 FL (80.0-94.0); MEAN PLATELET VOLUME 8.7 FL (7.4-10.4); PLATELET COUNT 218 /CUMM (130-400); RBC DISTRIBUTION WIDTH 12.6 % (11.5-14.5); RED BLOOD CELL CT 5.09 /CUMM (4.70-6.10); WHITE BLOOD CELL COUNT 11.6 /CUMM (4.8-10.8)
--- NOTE | 2017-09-19 21:32 | ED GENERAL ADULT ---
History of Present Illness General Chief Complaint: General Adult Stated Complaint: ?DEHYDRATION Source: patient Exam Limitations: no limitations Vital Signs & Intake/Output Vital Signs & Intake/Output Vital Signs Date Time Temp Pulse Resp B/P B/P Pulse O2 O2 Flow FiO2 Mean Ox Delivery Rate 09/19 2217 Room Air 09/196 87 18 129/90 99 Room Air 09/19 2121 96.5 105 18 160/106 99 Room Air Allergies Coded Allergies: latex (ITCHY 08/22/16) Reconcile Medications Amoxicillin 875 MG TABLET 1 TAB PO BID CELLULITIS AND ABSCESS Azithromycin (Zithromax) 250 MG TABLET 1 DP PO AD sinusitis 2 the first day followed by 1 for days 2-5 Insulin NPH Human Isophane (Novolin N) 100 UNIT/ML VIAL DM (Reported) Insulin Regular (Novolin R Inj) 1,000 UNITS/10 ML BAILEY 0 UNITS SC TID AC DIABETES (Reported) Mometasone Furoate (Nasonex) 50 MCG SPRAY.PUMP 2 SPRAY NASB DAILY SINUS CONGESTION Oxycodone HCl/Acetaminophen (Percocet 5-325 MG Tablet) 5 MG-325 MG TABLET 1-2 TAB PO BID PAIN Oxycodone HCl/Acetaminophen (Percocet 5-325 MG Tablet) 5 MG-325 MG TABLET 1-2 TAB PO BID pain Sulfamethoxazole/Trimethoprim (Bactrim Ds Tablet) 800 MG-160 MG TABLET 1 TAB PO BID CELLULITIS Sulfamethoxazole/Trimethoprim (Bactrim Ds Tablet) 800 MG-160 MG TABLET 1 TAB PO BID abscess Triage Note: PT STATES HE WAS HAVING RANDOM EPISODES OF PASSING OUT AND COUGHING WITH NAUSEA AND DIZZINESS. PT STATES HE HAS BEEN DRINKING WATER ABOUT 1.5 GALLONS OF WATER. PT DENIES CHEST PAIN OR SOB. PT STATES HE WAS HAVING HOT FLASHES. Triage Nurses Notes Reviewed? yes HPI: Patient woke up this morning and states that he just felt off. Patient states that his sinuses are congested and he felt like he is been in a fog all day. Patient thought it was his blood sugar was checked multiple times throughout the day and it is always been normal. Patient states at work he felt very tired and almost felt himself falling asleep. Patient denies any chest pain or palpitations. There is no shortness of breath. There is no headache. There are no fevers or chills. Past History Travel History Traveled to [place] past 21 day No Medical History Any Pertinent Medical History? 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 No Review of Systems Review of Systems Constitutional: Reports: see HPI. EENTM: Reports: see HPI, nasal congestion. Respiratory: Reports: no symptoms. Cardiovascular: Reports: no symptoms. GI: Reports: no symptoms. Genitourinary: Reports: no symptoms. Musculoskeletal: Reports: no symptoms. Skin: Reports: no symptoms. Neurological/Psychological: Reports: no symptoms. Hematologic/Endocrine: Reports: no symptoms. Immunologic/Allergic: Reports: no symptoms. All Other Systems: Reviewed and Negative Physical Exam Physical Exam General Appearance: well developed/nourished, alert, awake, anxious, mild distress Head: atraumatic, normal appearance Eyes: Bilateral: PERRL, EOMI. Ears, Nose, Throat: normal pharynx, normal ENT inspection, hearing grossly normal, nasal congestion Neck: normal inspection, supple, full range of motion Respiratory: normal breath sounds, chest non-tender, no respiratory distress, lungs clear Cardiovascular: regular rate/rhythm, normal peripheral pulses Gastrointestinal: normal bowel sounds, soft, non-tender, no organomegaly Back: normal inspection, normal range of motion Extremities: normal inspection, normal capillary refill, normal range of motion, no edema Neurologic/Psych: no motor/sensory deficits, awake, alert, oriented x 3, normal gait, normal mood/affect Skin: intact, normal color, warm/dry Lymphatic: no anterior cervical jose alberto Core Measures ACS in differential dx? No CVA/TIA Diagnosis: No Sepsis Present: No Sepsis Focused Exam Completed? 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09, MCV 89.2, MCH 30.2, MCHC 33.9, RDW 12.6, MPV 8.7, Gran % 64.6, Lymphocytes % 24.1, Monocytes % 7.2, Eosinophils % 3.7, Basophils % 0.4, Absolute Granulocytes 7.5 H, Absolute Lymphocytes 2.8, Absolute Monocytes 0.8 H, Absolute Eosinophils 0.4, Absolute Basophils 0 Initial ED EKG: NSR, no ST T wave changes Comments: Patient's symptoms have been there for greater than 12 hours. Departure Departure Disposition: HOME OR SELF CARE Condition: Stable Clinical Impression Primary Impression: Sinusitis Referrals: Eliz MCKEON,Vanesa Fontenot (PCP/Family) Additional Instructions: continue to drink plenty of fluids take antibiotics as prescribed use nasal spray as directed return if symptoms worsen or for any concerns Departure Forms: Customer Survey General Discharge Information Prescriptions: Current Visit Scripts Azithromycin (Zithromax) 1 DP PO AD #6 TAB 2 the first day followed by 1 for days 2-5 Mometasone Furoate (Nasonex) 2 SPRAY NASB DAILY #1 INHAL Critical Care Note Critical Care Note Critical Care Time: non-applicable
[2017-09-19 21:56] VITALS: BP 129/90
[2017-09-19] MEDS ORDERED: ZITHROMAX250 M2 PO (22:16)
[2017-09-19] MEDS ORDERED: NASONEX17 GM NASB (22:16)
== END 2017-09-19 22:19 ==
LOC: ERH 18:50
PROVIDERS: Emergency Medicine
DX: J32.9 Chronic sinusitis, unspecified (principal)
CPT/HCPCS: 93005; 93010

== ENCOUNTER 2017-12-17 19:45 | Emergency (ER) | payer OTHER ==
[~2017-12-17] VITALS: Ht 177.8 cm; Wt 93.4 kg
[~2017-12-17 19:45] MED LIST changes: +NASONEX17 GM NASB; +ZITHROMAX250 M2 PO
--- NOTE | 2017-12-17 20:42 | ED GENERAL ADULT ---
History of Present Illness General Chief Complaint: General Adult Stated Complaint: "? LT KNEE/THIGH INJURY,ABCESS ON RT FLANK" Source: patient Exam Limitations: no limitations Vital Signs & Intake/Output Vital Signs & Intake/Output Vital Signs Date Time Temp Pulse Resp B/P B/P Pulse O2 O2 Flow FiO2 Mean Ox Delivery Rate 12/17 2246 98.8 89 18 138/88 98 Room Air 12/17 2010 99.0 96 18 149/97 98 Room Air ED Intake and Output 12/18 0000 12/17 1200 Intake Total Output Total Balance Patient 206 lb Weight Weight Reported by Patient Measurement Method Allergies Coded Allergies: latex (ITCHY 08/22/16) Triage Note: PT FROM HOME C/O OF CYST ON RIGHT FLANK SIDE X2 DAYS. 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 PT STATES HE WAS LIVING A CONDO THAT HAD "CAT PISS ,SHIT, ROTTING FISH SO ITS PROBABLY INFECTED" PT STATES PAINFUL WHEN MOVING. PT ALSO HAS COMPLAINT OF LEFT KNEE PAIN FROM INJURY OF DROPPING A "MOTOR" ON IT. PT LIMPING X1 WEEK. PT TAKING OTC MOTRIN WITH NO RELIEF. Triage Nurses Notes Reviewed? yes HPI: This is a 27-year-old male with history of insulin-dependent diabetes presenting to the emergency department with a developing sore to the right flank. Patient states that he has had similar lesions in the past which required bedside drainage. Patient denies any fever, chills, nausea, vomiting. He also complains of left knee pain. 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 Since that time, he has had pain and difficulty with completely straightening his leg. He has had no other trauma recently. He has been taking ibuprofen with minimal relief. (Moe MCKEON,Talon) Reconcile Medications Amoxicillin 875 MG TABLET 1 TAB PO BID CELLULITIS AND ABSCESS Azithromycin (Zithromax) 250 MG TABLET 1 DP PO AD sinusitis 2 the first day followed by 1 for days 2-5 Insulin NPH Human Isophane (Novolin N) 100 UNIT/ML VIAL DM (Reported) Insulin Regular (Novolin R Inj) 1,000 UNITS/10 ML BAILEY 0 UNITS SC TID AC DIABETES (Reported) Mometasone Furoate (Nasonex) 50 MCG SPRAY.PUMP 2 SPRAY NASB DAILY SINUS CONGESTION Oxycodone HCl/Acetaminophen (Percocet 5-325 MG Tablet) 5 MG-325 MG TABLET 1-2 TAB PO BID PAIN Oxycodone HCl/Acetaminophen (Percocet 5-325 MG Tablet) 5 MG-325 MG TABLET 1-2 TAB PO BID pain Oxycodone HCl/Acetaminophen (Percocet 5-325 MG Tablet) 5 MG-325 MG TABLET 1 TAB PO Q6P PRN pain Sulfamethoxazole/Trimethoprim (Bactrim Ds Tablet) 800 MG-160 MG TABLET 1 TAB PO BID CELLULITIS Sulfamethoxazole/Trimethoprim (Bactrim Ds Tablet) 800 MG-160 MG TABLET 1 TAB PO BID abscess Sulfamethoxazole/Trimethoprim (Bactrim Ds Tablet) 800 MG-160 MG TABLET 1 TAB PO BID cellulitis (Crystal Mcginnis MD) Past History Travel History Traveled to [place] past 21 day No Medical History Any Pertinent Medical History? 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 No (Talon Rosa MD) Review of Systems Review of Systems Constitutional: Reports: no symptoms. EENTM: Reports: no symptoms. Respiratory: Reports: no symptoms. Cardiovascular: Reports: no symptoms. Musculoskeletal: Reports: see HPI. Skin: Reports: see HPI. All Other Systems: Reviewed and Negative (Talon oRsa MD) Physical Exam Physical Exam General Appearance: well developed/nourished, no apparent distress, alert, awake , comfortable Head: atraumatic, normal appearance Comments: Well-appearing young man in no acute distress. Patient has a circular erythematous lesion to the skin of his right flank with no fluctuance, induration. The lesion is approximately 0.5 cm in greatest dimension. Skin exam otherwise unremarkable. It is minimally raised. HEENT exam unremarkable. Neurologically intact and normal. Cardiopulmonary exam unremarkable. Abdominal exam unremarkable. Patient has some ecchymosis to the area of the distal right femur with associated tenderness. He has pain with full extension of the knee but is able to do so passively. He is neurovascular intact to the knee. He has no laxity or difficulty with straight leg raise. He is able to bear weight with some pain. Core Measures ACS in differential dx? No CVA/TIA Diagnosis: No Sepsis Present: No Sepsis Focused Exam Completed? No (Talon Rosa MD) Progress Differential Diagnoses I considered the following diagnoses in my evaluation of the patient: Developing abscess to the right flank. At this time, it appears that there is no pus to drain. Could be early cellulitis. Low suspicion for insect bite/spider bite. In terms of the knee pain, appears to be blunt trauma secondary to being struck by a motor. Low suspicion for acute tibial plateau fracture although will pursue X-ray to evaluate. Low suspicion for acute ligamentous injury or acute vascular pathology at this time. Doubt reduced dislocation. Plan of Care: Current Medications Sig/Antonio Start time Last Medication Dose Stop Time Status Admin Clindamycin 150 MG ONCE ONE 12/17 2129 CAN (Cleocin 150MG Cap) 12/17 2130 Plan for Bactrim, pain control, x-ray knee, reassessment. X-rays negative for acute bony pathology. Hua wrap was placed for comfort. Patient is given rice instructions. He is also prescribed short course of pain control for breakthrough pain. He is also prescribed a course of p.o. antibiotics for possible developing abscess. He is given return precautions and specific follow-up instructions. Initial ED EKG: none (Talon Rosa MD) Departure Departure Time of Disposition: 2227 Disposition: HOME OR SELF CARE Condition: Stable Clinical Impression Primary Impression: Cellulitis Secondary Impressions: Knee contusion Referrals: Eliz MCKEON,Vanesa Fontenot (PCP/Family) Additional Instructions: Thank you for coming to [facility] this evening. As we discussed, I recommend you continue to take ibuprofen every 6-8 hours as needed for pain. In addition, you may use Percocet for breakthrough pain. Please elevate the knee, rest as much as possible. Use ice for 30 minutes wrapped in a towel 2-3 times per day. Use the Hua wrap as I discussed. In terms of the skin lesion, I recommend that you take a full course of antibiotics as I prescribed. Watch out for worsening redness. Antibiotic sometimes cause diarrhea. For this reason, I recommend you take a probiotic; there are many different types and they are all available [id number]. Please return to the hospital if you develop any fever, chills, nausea, vomiting, abdominal pain, or any other concerning symptoms. Thank you, Dr. Rosa. Departure Forms: Customer Survey General Discharge Information Prescriptions: Current Visit Scripts Oxycodone HCl/Acetaminophen (Percocet 5-325 MG Tablet) 1 TAB PO Q6P PRN pain #10 TAB Sulfamethoxazole/Trimethoprim (Bactrim Ds Tablet) 1 TAB PO BID #20 TAB (Talon Rosa MD) Resident Co-Sign Statement Statement: ED Attending supervision documentation- [] I saw and evaluated the patient. I have also reviewed all the pertinent lab results and diagnostic results. I agree with the findings and the plan of care as documented in the Resident's documentation. [x] I have reviewed the ED Record and agree with the Resident's documentation. [] Additions or exceptions (if any) to the Resident's note and plan are summarized below: [] (Crystal Mcginnis MD) Critical Care Note Critical Care Note Critical Care Time: non-applicable (Talon Rosa MD)
--- NOTE | 2017-12-17 22:10 | RADIOLOGY REPORT ---
EXAMINATION: XR KNEE, LEFT CLINICAL INFORMATION: Knee pain. Concern for tibial plateau fracture. COMPARISON: None TECHNIQUE: Four views of the left knee. FINDINGS: No fracture or dislocation. Bone mineralization is within normal limits. No significant cartilage space narrowing. Very minimal hypertrophic changes about the left knee. No significant knee joint effusion. IMPRESSION: No acute osseous abnormality demonstrated.
[2017-12-17] MEDS ORDERED: BACTRIM DS TAB1 EACH PO (22:31)
[2017-12-17] MEDS ORDERED: PERCOCET 5-3251 EACH PO (22:31)
[2017-12-17 22:47] VITALS: BP 138/88
== END 2017-12-17 22:52 ==
LOC: ERH 19:45
DX: L03.311 Cellulitis of abdominal wall (principal); S80.02XA Contusion of left knee, initial encounter; E11.9 Type 2 diabetes mellitus without complications; Z79.4 Long term (current) use of insulin; W22.8XXA Striking against or struck by other objects, initial encounter; Y93.9 Activity, unspecified; Y92.89 Other specified places as the place of occurrence of the external cause
CPT/HCPCS: 73560-LT